=== PATIENT | male | born 1965 | race Hispanic/Latino ===

== ENCOUNTER 2022-07-12 13:19 | Emergency (ER) | payer OTHER, SELFPAY ==
[2022-07-12 13:46] VITALS: BP 158/80; PULSE 75; RESP 20; TEMP 36.8; O2SAT 100
--- NOTE | 2022-07-12 14:48 | ED.DENTAL ---
HPI - Dental/Oral General Chief complaint: Unspecified Stated complaint: Dental Pain /Face Twisted Time Seen by Provider: 07/12/22 14:48 Source: patient, RN notes reviewed and old records reviewed Mode of arrival: ambulatory Limitations: no limitations History of Present Illness HPI Narrative: 56-year-old male presents to the [facility] with complaints of facial droop and left-sided facial numbness for 3 days Also reports a left-sided headache for the last 3 days. Was concern for dental infection. Unable to raise left eyebrow, unable to close left eye. Numbness to the face and neck on the left side only Related Data Home Medications Medication Instructions Recorded Confirmed aspirin 81 mg tablet,delayed 81 mg PO DAILY 07/12/22 07/12/22 release atenolol 25 mg tablet 25 mg PO DAILY 07/12/22 07/12/22 famotidine 20 mg tablet 20 mg PO BID 07/12/22 07/12/22 hydrochlorothiazide 25 mg tablet 25 mg PO DAILY 07/12/22 07/12/22 pravastatin 80 mg tablet 80 mg PO DAILY 07/12/22 07/12/22 Allergies Allergy/AdvReac Type Severity Reaction Status Date / Time No Known Allergies Allergy Verified 07/12/22 14:06 Review of Systems Review of Systems: All systems reviewed & are unremarkable except as noted in HPI and below Constitutional: Constitutional: Reports no additional constitutional complaints Eyes: Eyes: Reports no additional eye complaints ENT: Reports as per HPI Cardiovascular: Cardiovascular: Reports no additional cardiovascular complaints, Denies chest pain and Denies dyspnea Respiratory: Respiratory: Reports no additional respiratory complaints, Denies chest congestion, Denies cough and Denies dyspnea Gastrointestinal: Gastrointestinal: Reports no additional gastrointestinal complaints, Denies abdominal pain, Denies nausea and Denies vomiting Musculoskeletal: Musculoskeletal: Reports no additional musculoskeletal complaints Integumentary/Breasts: Skin/Breast: Reports system reviewed and no additional complaints, except as docu Neurologic: Reports as per HPI, Denies vertigo, Denies dizziness and Reports numbness (Left-sided facial) Psychiatric: Psychiatric: Reports no additional psychiatric complaints Allergic/Immunologic: Allergic/Immunologic: Reports no additional allergic/immunologic complaints PMFSH Past Medical History Medical History Acid reflux High cholesterol History of high blood pressure Comments At the time of my signature, I reviewed and agree with the nursing past medical, surgical, social, and family history. There is no relevant family history pertinent to the patient complaint. Exam Const: General: cooperative, healthy appearing, comfortable, no acute distress, well developed, alert and well nourished Nutritional Appearance: well nourished Orientation/consciousness: patient oriented x3 Limitations: no limitations HENMT: Ears: hearing grossly normal bilaterally, external ears normal, EAC's normal and TM abnormal Face/Nose/Sinus: Normal external nose present, Normal nares present, Normal nasal mucous membranes and turbinates present, No erythema, No edema and Other nasal findings present Face and sinus: normal facial exam Mouth: Yes Normal oral and palatal mucosa present, Yes lip normal and Yes moist mucous membranes Teeth and gingiva: fair dentition Throat: posterior oropharynx normal and uvula midline Eyes: General: appearance normal, both eyes and all related structures Alignment and Position: alignment normal Periorbital: periorbital findings normal Conjunctivae: conjunctivae normal Pupils: Equal, round and reactive pupils present EOM: EOMs intact bilaterally Neck: Neck: normal visual inspection, full ROM, no lymphadenopathy and no meningeal signs Chest: Chest palpation & inspection: normal inspection of the chest Resp: Effort & Inspection: normal respiratory effort and able to speak in complete sentences Auscultation: clear to
== END 2022-07-12 15:03 | disposition short-term general hospital (02) ==
PROVIDERS: Emergency Provider Nurse Practitioner; PCP Registered Nurse
DX: R20.0 Anesthesia of skin (principal); R29.810 Facial weakness; K21.9 Gastro-esophageal reflux disease without esophagitis; E78.00 Pure hypercholesterolemia, unspecified; I10 Essential (primary) hypertension; Z79.82 Long term (current) use of aspirin
CPT/HCPCS: 99212; G0463

== ENCOUNTER 2022-07-12 15:32 | Emergency (ER) | payer OTHER, SELFPAY ==
[2022-07-12 15:34] VITALS: BP 175/87; PULSE 81; RESP 16; TEMP 36.9; O2SAT 98
--- NOTE | 2022-07-12 16:16 | ED.GENADULT ---
HPI - General Adult General Chief complaint: Neuro Symptoms/Deficit Stated complaint: Left face numbness, droop Time Seen by Provider: 07/12/22 15:47 History of Present Illness HPI narrative: 56-year-old male history of hypertension, hyperlipidemia presented with left facial weakness, pain. Per patient he noted left-sided facial pain, 3 days ago which progressed to weakness and difficulty closing his left eye. He was unable to see his primary care doctor for so he decided to present for further evaluation. He denied headache, weakness, numbness tingling anywhere else in his body, chest pain, shortness of breath, nausea, vomiting, abdominal pain, fevers, chills, sick contacts. Past medical history: Hypertension, hyperlipidemia Past surgical history: Prostatectomy Medications: Hydrochlorothiazide, Coreg Allergies: No known drug allergies Social: Denies smoking, drinking, recreational drugs Qualified oncologist: Self Related Data Home Medications Medication Instructions Recorded Confirmed aspirin 81 mg tablet,delayed 81 mg PO DAILY 07/12/22 07/12/22 release atenolol 25 mg tablet 25 mg PO DAILY 07/12/22 07/12/22 famotidine 20 mg tablet 20 mg PO BID 07/12/22 07/12/22 hydrochlorothiazide 25 mg tablet 25 mg PO DAILY 07/12/22 07/12/22 pravastatin 80 mg tablet 80 mg PO DAILY 07/12/22 07/12/22 Allergies Allergy/AdvReac Type Severity Reaction Status Date / Time No Known Allergies Allergy Verified 07/12/22 14:06 Review of Systems Review of Systems: See HPI [facility] Past Medical History Medical History Acid reflux High cholesterol History of high blood pressure Comments See HPI Exam Narrative: APPEARANCE: Alert, calm and cooperative, no acute distress, phonating, sitting comfortably during visit HEAD: atraumatic, left facial palsy with forehead involvement EYES: Able to close left eye with effort, Pupils equal round an reactive to light, extra ocular movements intact, no conjunctival injection EARS: Tympanic membranes clear, without vesicules, no erythema NOSE: Normal no drainage NECK: Supple, without meningismus RESPIRATORY: Lungs clear to auscultation bilaterally, no wheezes/rales/rhonchi, breathing comfortably CARDIOVASCULAR: Regular rate and rhythm, no visible jugular venous distension ABDOMINAL: Soft, nontender, nondistended, no guarding, no rebound/peritoneal signs, no costovertebral tenderness to palpation BACK: no midline tenderness to palpation, no step offs EXTREMITIES: No edema, palpable peripheral pulses, warm, well perfused, no tenderness to bilateral calves. NEURO: Alert and oriented x3, moving all extremities symmetrically, 5/5 strength throughout, normal finger nose finger, no pronator drift, negative romberg test, no truncal ataxia, sensation grossly intact, ambulating without deficit SKIN:: Warm, dry. Normal color PSYCHIATRIC: Normal affect/mood Course Vital Signs Vital signs: Vital Signs Temperature 98.4 F 07/12/22 15:34 Pulse Rate 81 07/12/22 15:34 Respiratory Rate 16 07/12/22 15:34 Blood Pressure 175/87 H 07/12/22 15:34 Pulse Oximetry 98 07/12/22 15:34 Oxygen Delivery Room Air 07/12/22 15:34 Temperature 98.4 F 07/12/22 15:34 Pulse Rate 81 07/12/22 15:34 Respiratory Rate 16 07/12/22 15:34 Blood Pressure 175/87 H 07/12/22 15:34 Pulse Oximetry 98 07/12/22 15:34 Oxygen Delivery Room Air 07/12/22 15:34 Medical Decision Making MDM Narrative Medical decision making narrative: Medical Decision Making 56-year-old male history of hypertension, hyperlipidemia presented with left facial pain has had numbness involving the forehead for the last 3 days. Physical exam notable for left sided facial palsy involving the forehead. Physical exam benign, remaining neuro exam nonfocal, vitals stable. 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
[2022-07-12] MEDS: predniSONE 20 MG TABLET 60 MG PO (16:33)
== END 2022-07-12 16:54 | disposition home or self-care (01) ==
PROVIDERS: Emergency Provider Emergency Medicine; PCP Registered Nurse
DX: G51.0 Bell's palsy (principal); I10 Essential (primary) hypertension; E78.5 Hyperlipidemia, unspecified; K21.9 Gastro-esophageal reflux disease without esophagitis; Z90.79 Acquired absence of other genital organ(s)
CPT/HCPCS: 99283; J7512